=== PATIENT | male | born 1995 | race African-American/Black ===

== ENCOUNTER 2020-07-18 00:45 | Emergency (ER) | payer OTHER ==
[~2020-07-18] VITALS: Ht 182.9 cm; Wt 97.5 kg
[~2020-07-18 00:45] MED LIST: APAP/CODEINE ELI5 M1 OR; AZITHROMYC200 MG/52 GT; COUGH SYRU100 MG/5 M PO; IBUPROFEN 600600 M1 PO; IBUPROFEN 800800 M1 PO; IBUPROFEN 800800 MG PO; MAGIC MOUTHWASH SWISH&SPIT; MOBIC15 MG PO; NAPROSYN500 MG PO; NOHOMEMEDICATIONS; NYQUIL D COLD295 ML; PENICILLIN V P500 MG PO; PENICILLIN VK500 M1 PO; PROVENTIL HFA6.7 G1 INH; TUSSIONEX PENN473 ML PO; ZPAK PO
[2020-07-18 01:15] VITALS: BP 162/103
[2020-07-18] MEDS ORDERED: PENICILLIN VK500 M1 PO (01:59)
[2020-07-18] MEDS ORDERED: TRAMADOL 50 MG50 MG PO (01:59)
== END 2020-07-18 02:50 | disposition home or self-care (01) ==
LOC: ER 00:45
DX: K02.9 Dental caries, unspecified (principal); J45.909 Unspecified asthma, uncomplicated; F17.210 Nicotine dependence, cigarettes, uncomplicated; Z79.2 Long term (current) use of antibiotics; Z79.899 Other long term (current) drug therapy

== ENCOUNTER 2020-10-10 07:02 | Emergency (ER) | payer OTHER ==
[~2020-10-10] VITALS: Ht 188 cm; Wt 111.1 kg
[~2020-10-10 07:02] MED LIST changes: +TRAMADOL 50 MG50 MG PO
[2020-10-10 07:57] LABS: URINE BILIRUBIN NEGATIVE (Negative); URINE BLOOD 1+ (Negative); URINE CLARITY CLEAR; URINE COLOR YELLOW; URINE GLUCOSE-RANDOM* NEGATIVE (Negative); URINE KETONES NEGATIVE (Negative); URINE LEUKOCYTES-REFLEX NEGATIVE (Negative); URINE NITRITE-REFLEX NEGATIVE (Negative); URINE PROTEIN (DIPSTICK) 2+ (Negative); URINE SPECIFIC GRAVITY >= 1.030 (1.005-1.035); URINE UROBILINOGEN 0.2 E.U./dl (0.2-1.0)
[2020-10-10 08:19] VITALS: BP 151/105
[2020-10-10 10:49] LABS: BACTERIA-REFLEX 1-9 Few /HPF (None Seen); HYALINE CASTS 0-3 Few /LPF (None Seen); SQUAMOUS 0-3 Few /LPF (0-3)
[2020-10-10 10:50] LABS: CRYSTALS None Seen /LPF (None Seen); URINE RBC 0-2 Rare /HPF (0-2); URINE WBC-REFLEX 0-5 Rare /HPF (0-5)
== END 2020-10-10 08:23 | disposition home or self-care (01) ==
LOC: ER 07:02
PROVIDERS: Emergency Medicine
DX: Z20.2 Contact with and (suspected) exposure to infections with a predominantly sexual mode of transmission (principal); J45.909 Unspecified asthma, uncomplicated; F17.210 Nicotine dependence, cigarettes, uncomplicated; Z79.1 Long term (current) use of non-steroidal anti-inflammatories (NSAID); Z79.899 Other long term (current) drug therapy; Z79.2 Long term (current) use of antibiotics

== ENCOUNTER 2021-01-13 15:33 | Emergency (ER) | payer OTHER ==
[2021-01-13 16:06] LABS: ABSOLUTE NEUTROPHILS 3.6 thou/uL (1.4-8.2); BASOPHILS 0.6 % (0.0-2.0); EOSINOPHILS 1.4 % (0.0-3.0); HEMATOCRIT 41.6 % (42.0-52.0); LYMPHOCYTES 31.1 % (24.0-44.0); MCH 29.4 pg (26.0-34.0); MCHC 33.8 g/dL (28.0-37.0); MONOCYTES 8.9 % (1.0-8.0); PLATELET COUNT 188 thou/uL (150-400); RBC 4.78 mil/uL (4.50-6.00); RDW 14.1 % (10.5-14.5); WBC 6.3 thou/uL (4.0-11.0)
[2021-01-13 16:12] LABS: ANION GAP 7 mmol/L (7-16); BUN 9 mg/dL (7-18); CALCIUM 8.9 mg/dL (8.5-10.1); CHLORIDE 102 mmol/L (98-107); CO2 27 mmol/L (21-32); GLUCOSE 99 mg/dL (74-106); POTASSIUM 3.5 mmol/L (3.5-5.1); SODIUM 136 mmol/L (136-145)
[2021-01-13 16:22] LABS: SGOT 16 U/L (15-37); SGPT 26 U/L (30-65); TOTAL BILIRUBIN 0.4 mg/dL (0.2-1.0); TOTAL PROTEIN 7.3 g/dL (6.4-8.2); TROPONIN-I <0.06 ng/mL (<0.06)
[2021-01-13 17:30] VITALS: BP 144/85
--- NOTE | 2021-01-16 07:16 | EKG ---
[place] [address] [address] [place] [address] ELECTROCARDIOGRAM REPORT Name: CHEMO ZEEYOLISRosey [facility] [id number] Admission: 01/13/21 Attend Phys: Discharge: 01/13/21 Date of : [birth year] Report #: [id number] [facility] ED Test Date: 2021-01-13 Test Time: 15:37:52 Pat Name: MARK ZEE Department: Room: Gender: Quality Control Inspector Heading: MAX : 1995 Requested By: Shaka Bro Order Number: [id number] MD: Miguelito Hines Measurements Intervals [place] Rate: 72 P: -4 IA: 222 QRS: 58 QRSD: 82 T: 5 QT: 363 QTc: 398 Interpretive Statements Sinus rhythm Prolonged IA interval RSR' in V1 or V2, probably normal variant Compared to ECG 08/24/2015 09:30:06 First degree AV block now present RSR' in V1 or V2 now present Sinus bradycardia no longer present ST (T wave) deviation no longer present Electronically Signed On 01-16-2021 7:16:11 CDT by Miguelito Hines [email or web address] <ELECTRONICALLY SIGNED> By: Miguelito Hines MD, FAC 01/16/21 0716 1537 1537 Miguelito Hines MD, [facility] /EPI
== END 2021-01-13 17:40 | disposition home or self-care (01) ==
LOC: ER 15:33
PROVIDERS: Emergency Medicine
DX: R07.89 Other chest pain (principal); J45.909 Unspecified asthma, uncomplicated; F17.210 Nicotine dependence, cigarettes, uncomplicated; Z79.899 Other long term (current) drug therapy